=== PATIENT | female | born 1950 | race Caucasian/White ===

== ENCOUNTER → 2017-08-01 | Outpatient (CLI) | payer OTHER ==
[~2017-08-01] MED LIST: AMOX-559 PO; BUPR-127 PO; CALC-852 PO; CLIN300C99 PO; FOLI20CA2 PO; HYDR200T42 PO; METH25VI SC; OMEP-137 PO; PRED2.5T6 PO
[2017-08-01 12:09] LABS: PLATELET COUNT, AUTOMATED 272 K/uL (150-450)
== END ==
LOC: LAB 11:45
PROVIDERS: ATTEND Anesthesiology
DX: Z01.812 Encounter for preprocedural laboratory examination (principal); M75.101 Unspecified rotator cuff tear or rupture of right shoulder, not specified as traumatic; S46.211D Strain of muscle, fascia and tendon of other parts of biceps, right arm, subsequent encounter
CPT/HCPCS: 36415; 82040; 82247; 82310; 82374; 82435; 82565; 82947; 84075; 84132; 84155; 84295; 84450; 84460; 84520; 85025

== ENCOUNTER 2018-01-29 01:50 | Day surgery (SDC) | payer MEDICARE, OTHER ==
[~2018-01-29] VITALS: Ht 172.7 cm; Wt 61.2 kg
[2018-01-29] VITALS (8 sets, daily range): BP systolic 113–140; BP diastolic 61–87
[2018-01-29] MEDS ORDERED: ROPIVACAINE 0.2% 20 ML VIAL ONE (06:47)
[2018-01-29] MEDS ORDERED: MIDAZOLAM 2 MG/2 ML VIAL ONE (07:53)
[2018-01-29] MEDS ORDERED: ONDANSETRON 4 MG/2 ML VIAL ONE (08:04)
[2018-01-29] MEDS ORDERED: fentaNYL CITR 100 MCG/2 ML AMP ONE ×3 (08:04→11:44)
[2018-01-29] MEDS ORDERED: DEXAMETHASONE SOD PHOS 10MG/ML ONE (08:04)
[2018-01-29] MEDS ORDERED: PROPOFOL EMUL(*) 10MG/ML 20 ML 20 ML ONE (08:04)
[2018-01-29] MEDS ORDERED: LIDOCAINE MPF 1% 5 ML VIAL ONE (08:04)
[2018-01-29] MEDS ORDERED: OXYC-865 PO (09:23)
[2018-01-29] MEDS ORDERED: LACTATED RINGER 3000 ML BAG IR ONE (11:33)
[2018-01-29] MEDS ORDERED: LIDOCAINE/SOD BICARB 8.4% SYR ID ONE (13:00)
[2018-01-29] MEDS ORDERED: ceFAZolin(*) 1 GM VIAL 1 GM in NS(*) 0.9% 100 ML ADDVANT BAG 100 ML IVPB ONE (13:00)
[2018-01-29] MEDS ORDERED: FAMOTIDINE 20 MG TAB PO ONE (13:00)
[2018-01-29] MEDS ORDERED: CELECOXIB 200 MG CAP PO ONE (13:00)
[2018-01-29] MEDS ORDERED: MIDAZOLAM 2 MG/2 ML VIAL IVP PRN (13:00)
[2018-01-29] MEDS ORDERED: NORMOSOL R SOLN(*) 1000 ML BAG 1,000 ML IV PRN (13:00)
--- NOTE | 2018-01-29 18:35 | OPERATIVE REPORT 1 ---
EVENT DATE: January 29, 2018 SURGEON: Richard Lambert MD ANESTHESIOLOGIST: Fran Tao MD ANESTHESIA: General LMA anesthesia. C4 PLANNER: GITA Gipson PREOPERATIVE DIAGNOSES 1. Repeat rotator cuff tear. 2. Loose fragment and cartilage damage throughout the joint. POSTOPERATIVE DIAGNOSES 1. Repeat rotator cuff tear. 2. Loose fragment and cartilage damage throughout the joint. PROCEDURES PERFORMED 1. Revision of a right shoulder rotator cuff repair. 2. Removal of loose bodies and implant deep. 3. Chondroplasty and extensive debridement throughout the joint. FINDINGS The patient had a retear in the rotator cuff that was amenable for repair, and also the lateral old [place] anchor had dislodged, which we were able to remove with the subsequent stitches. ESTIMATED BLOOD LOSS Minimal. DRAINS None. COMPLICATIONS None. IMPLANTS Biomet 2.9 JuggerKnot anchor with subsequent double-loaded stitch. SPECIMENS None. TOURNIQUET TIME Not applicable. INDICATIONS AND HISTORY This patient is a 67-year-old female who presented to my clinic for evaluation of right shoulder pain and irritation going on for some time. We had repaired her rotator cuff previously, and then she had subsequent falls after it. She did a lot better after the fall, but continued to have some pain and irritation. We ended up then getting another MRI which showed she had subsequently retorn her rotator cuff, and so therefore, we talked to her about the implications of this, and also because of her cartilage damage, talked to her about going to a reverse versus a revision of her rotator cuff repair. She said she wanted to do the revision of the cuff repair, and so therefore, we got her set up to do this today, January 29, 2018. The risks and benefits were discussed with the patient, and informed consent was obtained at today's visit. DESCRIPTION OF PROCEDURE As the patient was brought in the operating room, she and the procedure were both verified. She was placed supine on the operating table and induced and intubated by Anesthesia. She was then turned in the lateral decubitus position with the right arm towards the ceiling, and then the right arm was then prepped and draped in the usual fashion. A timeout was observed verifying the correct patient and procedure. The standard incision was made over the anterior and posterior aspects of the shoulder. I inserted the scope posteriorly, and this is when there was noted to be a little bit more cartilage damage than what we had previously, but not as significant an amount. We did perform a chondroplasty and also debrided some of the tissue on the undersurface of the rotator cuff in this area and did an extensive debridement inside of the joint. I then cleaned up the rotator cuff and cleaned up the area of the footprint in order to make it amenable for repeat repair as the tissue looked mobile enough to do this. I then went into the subacromial space where I was able to remove the old [place] anchor as well as the two sutures that came along with it without any major difficulty. Through a lateral cannula that we established, I was then able to clean up the rotator cuff and do another debridement through this area. There was a small spur off the acromion where the [place] anchor had kind of irritated into this area, and so therefore, I smoothed this off also with a bur. Once the rotator cuff was amenable for repair, I then placed one JuggerKnot anchor into the footprint a little bit towards the lateral side. I then was able to pass the sutures in a horizontal mattress-type fashion in order to tie the rotator cuff back down to the footprint. Once I was able to tie it back down, we had good coverage associated with this. Because of the hole from the prior [place], we did not use any lateral equivalent, and then I was able to flex and extend the shoulder and internally and externally rotate it without any difficulty. There were no major dog ears, and so this was left as the final construct. I then removed all the instrumentation, drained the fluid out of the wounds, anesthetized the sites with ropivacaine, closed them with 4-0 Monocryl, and dressed them with Steri-Strips, gauze 4 x 4's, and a soft dressing. The patient was awakened, extubated, and transferred to the PACU in stable condition. NITHIN
== END 2018-01-29 10:45 | disposition home or self-care (01) ==
LOC: OR 01:50
PROVIDERS: ATTEND Orthopaedic Surgery
DX: M75.101 Unspecified rotator cuff tear or rupture of right shoulder, not specified as traumatic (principal); T85.628A Displacement of other specified internal prosthetic devices, implants and grafts, initial encounter
CPT/HCPCS: 29823; 29827; A9270; C1713; J0690; J1100; J2001; J2250; J2405; J2704; J2795; J3010; J7050; L3670

== ENCOUNTER 2018-08-23 09:29 | Emergency (ER) | payer MEDICARE, OTHER ==
[~2018-08-23 09:29] MED LIST changes: +OXYC-865 PO
[2018-08-23] MEDS ORDERED: GLUC1CAP10 (09:48)
[2018-08-23] MEDS ORDERED: MORPHINE 4 MG/ML SDV IV ONE (10:00)
[2018-08-23] MEDS ORDERED: ORPHENADRINE 60MG/2ML INJ IM ONE (10:00)
--- NOTE | 2018-08-23 10:30 | ER Report ---
History and Physical Time Seen By MD: 09:45 Hx. of Stated Complaint: back spasms HPI/ROS CHIEF COMPLAINT: Back pain HISTORY OF PRESENT ILLNESS: Patient is a 67-year-old female with past medical history of back issues and laminectomy a few years ago. Patient states that yesterday she was doing some cleaning around the house and since that time she is experiencing pain in her left lumbar area paraspinally. She denies any retention or incontinence of urine or stool. She denies saddle anesthesia. Movement seems to make the pain worse. She currently describes the pain as 7 out of 10 in intensity. Denies any fevers. She denies any recent unwanted weight loss. No history of cancer. She does have a history of renal insufficiency and tries to avoid NSAIDs. REVIEW OF SYSTEMS: Respiratory: No cough, no dyspnea. Cardiovascular: No chest pain, no palpitations. Gastrointestinal: No vomiting, no abdominal pain. Musculoskeletal: Lumbar back pain Allergies: Coded Allergies: No Known Drug Allergies (Unverified , 08/23/18) Home Meds Reported Medications Glucosam/Chondroit/C/Manganese (Cosamin Ds Capsule) 1 Each Capsule 08/23/18 Folic Acid (FOLIC ACID) 20 Mg Capsule, 80 MG PO DAILY, CAPSULE 03/01/14 Calcium Carbonate/Vitamin D3 (CALCIUM + VITAMIN D TABLET) 1 Each Tablet, 1 EACH PO DAILY 03/01/14 Bupropion Hcl (WELLBUTRIN) 75 Mg Tablet, 300 MG PO QDAY, TAB TAKE 1 TABLET BY MOUTH EVERY DAY 03/01/14 Hydroxychloroquine Sulfate (HYDROXYCHLOROQUINE SULFATE) 200 Mg Tablet, 200 MG PO QAM 03/01/14 Methotrexate Sodium/Pf (METHOTREXATE 25 MG/ML VIAL) 25 Mg/1 Ml Vial, 0.8 MG SC DIRECTED, VIAL 03/01/14 Discontinued Reported Medications Oxycodone Hcl/Acetaminophen (PERCOCET 5-325 MG TABLET) 1 Each Tablet, 1-2 EACH PO Q6H PRN for pain, #60 TAB 01/29/18 Past Medical/Surgical History Back pain with history of laminectomy Hx Smoking: No Smoking Status: Never Smoker Hx Substance Use Disorder: No Hx Alcohol Use: Yes Constitutional Vital Sign - Last 24 Hours 08/23/18 08/23/18 08/23/18 08/23/18 09:39 09:43 09:59 10:42 Temp 97.8 Pulse 72 64 Resp 16 B/P (MAP) 145/94 (111) 145/94 136/115 (122) Pulse Ox 95 O2 Delivery Room Air Physical Exam General appearance: alert no distress. Back: Thoracic spine has no spinal or paraspinal tenderness to palpation. Lumbar spine has no spinal tenderness moderate left paraspinal tenderness Gastroinal: Abdomen is soft, non tender, no masses.. Skin: No lesions and no rashes. Vascular: Normal capillary refill and pulses to feet. Neurological: Motor function: leg strength normal and symmetric for both legs Sensory function: normal for all leg dermatomes. Straight leg raise negative to 70 degrees. Reflexes normal bilaterally on legs. [ ] DIFFERENTIAL DIAGNOSIS: After history and physical exam differential diagnosis was considered for back pain including muscular strain, herniated disc, intra- abdominal and renal causes. Medical Decision Making EKG/Imaging Imaging FACILITY: [facility] [place] PATIENT NAME: Molly Nagy : 1950 MR: [id number] V: [id number] EXAM DATE: ORDERING PHYSICIAN: CARLOS DANIELS TECHNOLOGIST: Location: [facility] - [place] Patient: Molly Nagy : 1950 Visit/Account:[id number] Date of Sevice: 08/23/2018 Exam type: L-SPINE 2 OR 3 VIEW History: Pain and lower back since yesterday, no known injury Comparison: MR lumbar spine January 10, 2016. Findings: AP and lateral views lumbar spine demonstrate five nonrib-bearing lumbar type vertebra. There is unilateral sacralization of L5 on the right. There is a grade 1 anterolisthesis of L4 with respect L5 with moderate disc space narrowing that appears similar to the prior MR. Moderate disc space narrowing also noted at L1-L2 three and L3-4 also similar to the prior study. There is no evidence o f acute fractures or subluxations seen IMPRESSION: 1. Multilevel spondylotic changes lumbar spine appearing similar to the prior MR the lumbar spine from January 18, 2016. If symptoms persist a repeat MR may be helpful Report Dictated By: Melody Rain MD at 08/23/2018 10:50 AM Report E-Signed By: Melody Rain MD at 08/23/2018 10:52 AM WSN:[email or web address] ED Course/Re-evaluation ED Course 08/23/2018 10:30:41 am plan at this time will be x-ray of the lumbar spine will also give IM morphine and IM Norflex. 08/23/2018 11:07:56 am she feels somewhat better at this time x-ray is unchanged from prior we will discharge home. Decision to Disposition Date: Aug 23, 2018 Decision to Disposition Time: 11:08 Depart Departure Latest Vital Signs Vital Signs Date Time Temp Pulse Resp B/P (MAP) Pulse Ox O2 Delivery O2 Flow Rate FiO2 08/23/18 10:42 136/115 (122) 08/23/18 09:59 64 08/23/18 09:43 97.8 16 95 Room Air Impression: Primary Impression: Back pain Condition: Improved Disposition: HOME OR SELF-CARE Referrals: CHINA RIOS MD (PCP) if symptoms persist or worsen New Scripts Methocarbamol (ROBAXIN-750) 750 Mg Tablet 1500 MG PO TID for Muscle Relaxant, #15 TAB 0 Refills Prov: CARLOS DANIELS MD 08/23/18 Patient Instructions: Acute Low Back Pain (ED) Problem Qualifiers Primary Impression: Back pain Back pain location: low back pain Chronicity: acute Back pain laterality: left Sciatica presence: without sciatica Qualified Codes: M54.5 - Low back pain CARLOS DANIELS MD Aug 23, 2018 10:30
--- NOTE | 2018-08-23 10:57 | RADIOLOGY IMAGING REPORT ---
FACILITY: [facility] PATIENT NAME: Molly Nagy : 1950 MR: [id number] V: [id number] EXAM DATE: ORDERING PHYSICIAN: CARLOS DANIELS TECHNOLOGIST: Location: [facility] - [place] Patient: Molly Nagy : 1950 Visit/Account:[id number] Date of Sevice: 08/23/2018 Exam type: L-SPINE 2 OR 3 VIEW History: Pain and lower back since yesterday, no known injury Comparison: MR lumbar spine January 10, 2016. Findings: AP and lateral views lumbar spine demonstrate five nonrib-bearing lumbar type vertebra. There is uni lateral sacralization of L5 on the right. There is a grade 1 anterolisthesis of L4 with respect L5 w ith moderate disc space narrowing that appears similar to the prior MR. Moderate disc space narrowin g also noted at L1-L2 three and L3-4 also similar to the prior study. There is no evidence of acute fractures or subluxations seen IMPRESSION: 1. Multilevel spondylotic changes lumbar spine appearing similar to the prior MR the lumbar spine fr om January 18, 2016. If symptoms persist a repeat MR may be helpful Report Dictated By: Melody Rain MD at 08/23/2018 10:50 AM Report E-Signed By: Melody Rain MD at 08/23/2018 10:52 AM WSN:[email or web address]
[2018-08-23 11:00] VITALS: BP 131/75
[2018-08-23] MEDS ORDERED: OXYC-865 PO (11:09)
[2018-08-23] MEDS ORDERED: METH-543 PO (11:09)
== END 2018-08-23 11:19 | disposition home or self-care (01) ==
LOC: ER 10:14
DX: M54.5 Low back pain (principal)
CPT/HCPCS: 72100; 96372; 99283; J2270; J2360